=== PATIENT | female | born 1985 | race Caucasian/White ===

== ENCOUNTER 2016-12-10 06:04 | Inpatient (IN) | payer OTHER ==
[2016-12-10] MEDS: LACTATED RINGERS 1,000 ML IV SCH ×2 (07:40→17:30)
[2016-12-10] MEDS ORDERED: ceFAZolin/DEXTROSE,ISO 2 GM/50 ML PIGGYBACK IV PRN (08:16)
[2016-12-10] MEDS ORDERED: HOME MEDICATION LIST NEEDED 1 EA EACH MC ONE (08:16)
[2016-12-10] MEDS ORDERED: LACTATED RINGERS 1,000 ML IV ONE (08:26)
[2016-12-10] MEDS ORDERED: NORMAL SALINE 100 ML IV ONE (08:27)
[2016-12-10] MEDS ORDERED: ceFAZolin 1 GM/10 ML VIAL ONE (08:27)
--- NOTE | 2016-12-10 08:34 | PROGRESS NOTE:Antepartum ---
Assessment and Plan - Date of Encounter Date of Encounter: 12/10/16 (1) Non-reassuring electronic monitoring tracing Status: Acute Current Visit: Yes (2) with 38 completed weeks gestation Status: Acute Current Visit: Yes (3) Encounter for care in third trimester of first Status: Acute Current Visit: Yes (4) Single live Status: Chronic Current Visit: Yes (5) Delivered by section Status: Chronic Current Visit: Yes - Time Spent With Patient Total time spent with greater than 50% in coordination of care (as documented) at patient's floor/unit and/or counseling patient: Estimated anticipated discharge: 12/13/16 DESIGN TECH: Antepartum PN Subj - Subjective Interval history: History and Physical Patient is a 31 yo G1 at 38+3 weeks EGA who presents to L&D wtih decreased movement since 0300 hours. NST in L&D showed minimal variability. VAS resulted in 2 decelerations. She continues to have minimal variability and periodic decelerations including late decelerations. O: VS noted, see flowsheet Gen: NAD, A&O abd: soft, ND, NT, gravid SVE cx: ext: no c/c/e CAt II FHT TAUS at bedside: No breathing movements. +gross movements. ALICIA 19.4. Cephalic presentation. A/P: 31 yo G1 at 38+3 weeks EGA with non-reassuring heart tracing. Decelerations with VAS. Remote from delivery, will not tolerate labor. REcommend we proceed with LTCS, which patient and FOB agree to. We discussed risks, alternatives, and benefits of LTCS. All questions answered, desires to proceed with LTCS. Patient reports: appetite normal, voiding normally, pain well controlled, ambulating normally Antepartum ROS: new complaints, no movement normal DESIGN TECH: Antepartum PN Obj Exam - Latest Vital Signs and I&O Latest Vital Signs/I&O: Vital Signs Temp 36.4 C L 12/10/16 06:15 Pulse 96 H 12/10/16 06:15 Resp 18 12/10/16 06:15 BP 109/80 12/10/16 06:15 Pulse Ox 94 12/10/16 06:15 Intake & Output 12/09/16 12/10/16 12/10/16 17:59 05:59 17:59 Weight 59.874 kg - Exam Heart Monitor comment: NRFHT. Minimal to moderate variability. Decelerations with VAS. Lungs: Bilateral: normal Heart Rhythm: Present: regular Extremities: Absent: tenderness Abdomen: Present: soft Bowel sounds: present Fundal height (cm): 36 Cervical Dilatation Degree: 1 Cervical Effacement Percentage: 30 Additional Comments: -3 station
[2016-12-10 08:35] LABS: BASOPHILS 0.4 % (0.0-2.0); EOSINOPHILS 1.3 % (0.0-6.0); EOSINOPHILS# 0.1 X 10^3uL (0.0-0.4); HEMATOCRIT 42.1 % (36.0-48.0); HEMOGLOBIN 14.1 g/dL (12.0-16.0); LYMPHOCYTES 21.4 % (20.0-40.0); MEAN CELL VOLUME 89.6 fL (80.0-100.0); MEAN CORPUS. HGB CONCENTRATION 33.4 g/dL (32.0-36.0); MEAN PLATELET VOLUME 7.8 fL (7.4-10.4); MONOCYTES 4.9 % (2.0-10.0); MONOCYTES# 0.5 X 10^3uL (0.2-1.0); NEUTROPHILS# 6.8 X 10^3uL (2.6-6.7); PLATELET COUNT 291 X 10^3uL (130-440); RED CELL DISTRIBUTION WIDTH 12.4 % (11.5-14.5); WHITE BLOOD COUNT 9.4 X 10^3uL (3.9-10.7)
[2016-12-10] MEDS ORDERED: FENTANYL 100 MCG/2 ML VIAL ONE (08:53)
[2016-12-10] MEDS ORDERED: MORPHINE SULFATE/PF 10 MG/10 ML VIAL ONE (08:54)
[2016-12-10 08:57] LABS: ABO GROUP TYPE B; RH TYPE POSITIVE
[2016-12-10] MEDS ORDERED: NORMAL SALINE 1,000 ML IV SCH (09:00)
[2016-12-10 09:05] LABS: ANTIBODY SCREEN NEGATIVE
[2016-12-10] MEDS ORDERED: LIDOCAINE HCL 1% 20 ML VIAL ONE (09:07)
[2016-12-10] MEDS ORDERED: PHENYLEPHRINE HCL 10,000 MCG/ML VIAL ONE (09:18)
[2016-12-10] MEDS ORDERED: DEXAMETHASONE 4 MG/ML VIAL ONE (09:24)
[2016-12-10] MEDS ORDERED: METOCLOPRAMIDE HCL 10 MG/2 ML VIAL ONE (09:24)
[2016-12-10] MEDS ORDERED: ONDANSETRON HCL 4 MG/2 ML VIAL ONE (09:24)
[2016-12-10] MEDS ORDERED: FAMOTIDINE IN SALINE, ISO-OSM 20 MG/50 ML PIGGYBACK IV ONE (09:27)
[2016-12-10] MEDS ORDERED: SCOPOLAMINE 1.5 MG PATCH ONE (09:27)
[2016-12-10] MEDS ORDERED: OXYTOCIN 10 UNITS/ML VIAL ONE (09:32)
[2016-12-10] MEDS ORDERED: LACTATED RINGERS 1,000 ML IV SCH ×2 (10:00→11:00)
[2016-12-10] MEDS ORDERED: LANOLIN CREAM 1 APP/7 GM TUBE TOPICAL PRN (10:00)
[2016-12-10] MEDS ORDERED: MAGNESIUM HYDROXIDE 30 ML UDC PO PRN (10:00)
--- NOTE | 2016-12-10 10:00 | OPERATIVE NOTE: C-Section ---
- Operative Report Date of procedure: 12/10/16 Pre-Op Diagnosis: non-reassuring heart tracing Post-op diagnosis: same Procedure: Low transverse section Anesthesia Type: Spinal Estimated Blood Loss: 600 Pathology: sent (cord blood, cord gases) Sponge and instrument counts: correct X-ray taken: No Images viewed by surgeon: No Images viewed by radiologist: No Estimated Gestational Age (weeks): 38 Delivery Presentation: vertex Heart Monitor: category II Heart Monitor comment: NRFHT, late decels, minimal to moderate variability Intrapartum Events: none, recurrent late decelerations, recurrant variable decelerations Amniotic Fluid: meconium Cord Vessel Description: Nuchal Cord Nuchal Cord # of Loops: 1 Cord clamped: Yes Cord blood obtained: Yes at 1 minute: 4 at 5 minutes: 5 at 10 minutes: 5 Gender: Female Delivery Complications: Present: none Narrative: see dictated operative report. Condition: stable Disposition: PACU
[2016-12-10] MEDS ORDERED: DIPHENHYDRAMINE 50 MG/ML VIAL IV PRN ×2 (10:08→10:26)
[2016-12-10] MEDS ORDERED: NALOXONE HCL 0.4 MG/ML VIAL IV PRN ×6 (10:08→10:26)
[2016-12-10] MEDS ORDERED: NALBUPHINE HCL 10 MG/ML AMP IV PRN ×2 (10:08→10:26)
[2016-12-10] MEDS ORDERED: DIPHENHYDRAMINE 25 MG CAPSULE PO PRN ×2 (10:08→10:26)
[2016-12-10] MEDS: IBUPROFEN 600 MG TABLET PO PRN (14:00)
[2016-12-10] MEDS: DOCUSATE SODIUM 100 MG CAPSULE PO SCH (20:53)
[2016-12-11] MEDS: IBUPROFEN 600 MG TABLET PO PRN ×3 (02:41→17:31)
[2016-12-11 07:29] LABS: BASOPHILS 0.2 % (0.0-2.0); EOSINOPHILS 0.5 % (0.0-6.0); EOSINOPHILS# 0.1 X 10^3uL (0.0-0.4); HEMATOCRIT 36.2 % (36.0-48.0); HEMOGLOBIN 12.1 g/dL (12.0-16.0); LYMPHOCYTES 22.9 % (20.0-40.0); LYMPHOCYTES# 2.9 X 10^3uL (0.8-3.8); MEAN CELL VOLUME 88.7 fL (80.0-100.0); MEAN CORPUS. HGB CONCENTRATION 33.5 g/dL (32.0-36.0); MEAN CORPUSCULAR HEMOGLOBIN 29.7 pg (29.0-35.0); MEAN PLATELET VOLUME 7.6 fL (7.4-10.4); MONOCYTES 4.7 % (2.0-10.0); MONOCYTES# 0.6 X 10^3uL (0.2-1.0); NEUTROPHILS 71.7 % (54.0-75.0); RED BLOOD COUNT 4.09 X 10^6uL (4.20-6.10); RED CELL DISTRIBUTION WIDTH 12.7 % (11.5-14.5); WHITE BLOOD COUNT 12.6 X 10^3uL (3.9-10.7)
--- NOTE | 2016-12-11 08:14 | PROGRESS NOTE:C-section ---
Assessment and Plan - Date of Encounter Date of Encounter: 12/11/16 (1) Non-reassuring electronic monitoring tracing Status: Acute Current Visit: Yes (2) with 38 completed weeks gestation Status: Acute Current Visit: Yes (3) Encounter for care in third trimester of first Status: Acute Current Visit: Yes (4) Single live Status: Chronic Current Visit: Yes (5) Delivered by section Problem details: POD#1 s/p LTCS for NRFHT. Doing well overall. No fever. Good pain control. Status: Chronic Current Visit: Yes - Time Spent With Patient Total time spent with greater than 50% in coordination of care (as documented) at patient's floor/unit and/or counseling patient: Estimated anticipated discharge: 12/13/16 WEB ENGINEER: C-Sec PN Subjective Interval History: History and Physical Patient is a 31 yo G1 at 38+3 weeks EGA who presents to L&D wtih decreased movement since 0300 hours. NST in L&D showed minimal variability. VAS resulted in 2 decelerations. She continues to have minimal variability and periodic decelerations including late decelerations. O: VS noted, see flowsheet Gen: NAD, A&O abd: soft, ND, NT, gravid SVE cx: 07/11/3 ext: no c/c/e CAt II FHT TAUS at bedside: No breathing movements. +gross movements. ALICIA 19.4. Cephalic presentation. A/P: 31 yo G1 at 38+3 weeks EGA with non-reassuring heart tracing. Decelerations with VAS. Remote from delivery, will not tolerate labor. REcommend we proceed with LTCS, which patient and FOB agree to. We discussed risks, alternatives, and benefits of LTCS. All questions answered, desires to proceed with LTCS. Post-op Day: 1 Patient reports: appetite normal, voiding normally, pain well controlled, ambulating normally, flatus : doing well, nursing well WEB ENGINEER: C-Sec PN Obj Exam - Latest Vital Signs and I&O Latest Vital Signs/I&O: Vital Signs Temp 36.4 C L 12/11/16 02:00 Pulse 88 12/11/16 02:00 Resp 19 12/11/16 02:00 BP 93/54 12/11/16 02:00 Pulse Ox 97 12/11/16 02:00 Intake & Output 12/10/16 12/11/16 12/11/16 17:59 05:59 17:59 Intake Total 1999 Output Total 2800 1050 Balance -800 -1050 Weight 59.874 kg Intake: IV 1999 Left Hand 1999 Oral 0 Output: Urine 2100 1050 Uretheral ([place]raham) 500 Other 700 Other: Urine Appearance Clear Clear Urine Color Pale Pale Yellow Yellow Uretheral ([place]) Pale Yellow Stool Characteristics Soft Formed Voiding Method Indwelling Catheter Indwelling Catheter - Exam Heart Rhythm: Present: regular Extremities: Present: normal, edema Abdomen: Present: normal appearance, soft Bowel sounds: present Incision: Present: well approximated, open to air Uterus: Present: normal, firm, non tender - Lab Labs: Laboratory Last Values WBC 12.6 X 10^3uL (3.9-10.7) H 12/11/16 07:10 RBC 4.09 X 10^6uL (4.20-6.10) L 12/11/16 07:10 Hgb 12.1 g/dL (12.0-16.0) 12/11/16 07:10 Hct 36.2 % (36.0-48.0) 12/11/16 07:10 MCV 88.7 fL (80.0-100.0) 12/11/16 07:10 MCH 29.7 pg (29.0-35.0) 12/11/16 07:10 MCHC 33.5 g/dL (32.0-36.0) 12/11/16 07:10 RDW 12.7 % (11.5-14.5) 12/11/16 07:10 Plt Count 230 X 10^3uL (130-440) 12/11/16 07:10 MPV 7.6 fL (7.4-10.4) 12/11/16 07:10 Neutrophils % 71.7 % (54.0-75.0) 12/11/16 07:10 Lymphocytes % 22.9 % (20.0-40.0) 12/11/16 07:10 Eosinophils % 0.5 % (0.0-6.0) 12/11/16 07:10 Basophils % 0.2 % (0.0-2.0) 12/11/16 07:10 Neutrophils # 9.0 X 10^3uL (2.6-6.7) H 12/11/16 07:10 Lymphocytes # 2.9 X 10^3uL (0.8-3.8) 12/11/16 07:10 Monocytes 4.7 % (2.0-10.0) 12/11/16 07:10 Monocytes # 0.6 X 10^3uL (0.2-1.0) 12/11/16 07:10 Eosinophils # 0.1 X 10^3uL (0.0-0.4) 12/11/16 07:10 Basophils # 0.0 X 10^3uL (0.0-0.1) 12/11/16 07:10 ABO Group Type b 12/10/16 08:16 Rh Factor Positive 12/10/16 08:16 Antibody Screen Negative 12/10/16 08:16
[2016-12-11] MEDS: DOCUSATE SODIUM 100 MG CAPSULE PO SCH ×2 (09:12→22:18)
[2016-12-11] MEDS ORDERED: WITCH HAZEL 1 EACH MED..PAD TOPICAL ONE (20:12)
[2016-12-11] MEDS: SIMETHICONE CHEW 80 MG TABLET PO PRN (22:18)
[2016-12-12 03:59] VITALS: RESP 16
--- NOTE | 2016-12-12 08:15 | DC SUMMARY: Obstetrical/GYN ---
Discharge Summary: Surg/OB Provider: Date of Admission: 12/10/16 Admitting Provider: MIGUE PEDERSON MD Attending Provider: MIGUE PEDERSON MD Discharging Provider: Edward Marsh Primary Care Provider: Discharge Date: 12/12/16 - Diagnosis (1) Non-reassuring electronic monitoring tracing Status: Acute (2) with 38 completed weeks gestation Status: Acute (3) Encounter for care in third trimester of first Status: Acute (4) Single live Status: Chronic (5) Delivered by section Status: Chronic Hospital Course: Ms. PHOENIX is a 31 year old female who underwent urgent LTCS for NRFHT. She did well and is doing well currently with good pain control, no fever, ambulating, voiding, tolerating PO. Desires discharge home. f/u [address] Pederson. Time spent discussing smoking cessation with patient: more than 10 minutes Discharge - Patient/Caregiver Discharge Instructions Activity Level: As tolerated, pelvic rest for 6 weeks, avoid all but light exercise. Follow up with Dr. Pederson in 6 weeks. Diet: regular Additional Instructions: follow up in 6 weeks Follow up: MIGUE PEDERSON MD [ACTIVE (Staff Physician)] - 7 Days Overall discharge status: patient is progressing back to baseline Print Language: NICARAG[place] Home Medications: Ibuprofen 800 mg PO TID #30 tab oxyCODONE HCL/ACETAMINOPHEN [Percocet 5-325 mg Tablet] 2 each PO Q6H PRN #24 tablet PRN Reason: Pain, Moderate Polyethylene Glycol 3350 [Miralax*] 1 packet PO BID #15 packet Disposition: HOME, SELF-CARE Obstetrical/HTML DEVELOPER Discharge Exam - Latest Vital Signs and I&O Latest Vital Signs/I&O: Vital Signs Temp 36.8 C 12/12/16 03:58 Pulse 88 12/12/16 03:58 Resp 16 12/12/16 03:58 BP 106/62 12/12/16 03:58 Pulse Ox 94 12/12/16 03:58 Intake & Output 12/11/16 12/12/16 12/12/16 17:59 05:59 17:59 Intake Total 2700 Output Total 4200 1000 Balance -1500 -1000 Intake: Oral 2700 Output: Urine 3500 1000 Other 700 Other: Urine Appearance Clear Clear Urine Color [place] Yellow Stool Characteristics Soft Formed Voiding Method Toilet Toilet # Voids 1 - Exam Heart Rhythm: Present: regular Extremities: Present: normal, edema Abdomen: Present: normal appearance, soft Bowel sounds: present Incision: Present: well approximated, open to air Uterus: Present: normal, firm, non tender Discharge Summary Data - Medication History Medication History: Home Medications Diphenhydramine [Benadryl*] 25 mg PO HS PRN 12/11/16 Loratadine [Claritin] 10 mg PO DAILY 12/11/16 Omeprazole [Prilosec] 20 mg PO BEFORE BRKFST/DINN 12/11/16 Vit/Fe Fumarate/FA [ Rx 1] 1 tab PO DAILY 12/11/16 Ibuprofen 800 mg PO TID #30 tab 12/12/16 Polyethylene Glycol 3350 [Miralax*] 1 packet PO BID #15 packet 12/12/16 oxyCODONE HCL/ACETAMINOPHEN [Percocet 5-325 mg Tablet] 2 each PO Q6H PRN #24 tablet 12/12/16 Inpatient Medications 12/10/16 08:16 ceFAZolin/DEXTROSE,ISO [Ancef 2 gm] 2 gm IV .SCIENTIFIC TECHNICAL WRITER TO OR PRN 12/10/16 09:00 Lactated Ringers [Lr 1000 ml Bag] 1,000 ml IV CONT Normal Saline [Sodium Chloride 0.9% 1000 ml] 1,000 ml IV CONT 12/10/16 10:00 Ibuprofen [Motrin] 600 mg PO Q6H PRN Lactated Ringers [Lr 1000 ml Bag] 1,000 ml IV CONT Lanolin Cream [Lansinoh] 1 arvin TOPICAL PRN PRN Magnesium Hydroxide [Milk of Magnesia] 30 ml PO PRN PRN Simethicone Chew [Mylicon] 80 mg PO Q6H PRN oxyCODONE HCL IR [Oxy Ir] See Dose Instructions PO Q4H PRN 12/10/16 10:26 proMETHazine HCL [Phenergan Inj] 12.5 mg IV ONCE PRN 12/10/16 11:00 Lactated Ringers [Lr 1000 ml Bag] 1,000 ml IV CONT 12/10/16 21:00 Docusate Sodium [Colace] 100 mg PO BID Procedures and tests throughout hospitalization: Completed Lab Orders 12/10/16 08:16 ABO GROUP [HEM] Stat ANTIBODY SCREEN [HEM] Stat CBC AUTO DIF, MDIF/RMOR IF IND [HEM] Stat RH TYPE [HEM] Stat 12/11/16 07:10 CBC AUTO DIF, MDIF/RMOR IF IND [HEM] Urgent Pending Orders 12/10/16 08:16 Admit: Inpatient Routine VTE Prophylaxis Scoring/ Ordering Routine NLC Maternal Vital Signs PER PROTOCOL Resuscitation Status Routine ceFAZolin/DEXTROSE,ISO [Ancef 2 gm] 2 gm IV .SCIENTIFIC TECHNICAL WRITER TO OR PRN 12/10/16 09:00 Lactated Ringers [Lr 1000 ml Bag] 1,000 ml IV CONT Normal Saline [Sodium Chloride 0.9% 1000 ml] 1,000 ml IV CONT 12/10/16 10:00 VTE Prophylaxis Scoring/ Ordering Routine Intake and Output Notify Physician Post Assessment PER PROTOCOL Ibuprofen [Motrin] 600 mg PO Q6H PRN Lactated Ringers [Lr 1000 ml Bag] 1,000 ml IV CONT Lanolin Cream [Lansinoh] 1 arvin TOPICAL PRN PRN Magnesium Hydroxide [Milk of Magnesia] 30 ml PO PRN PRN Simethicone Chew [Mylicon] 80 mg PO Q6H PRN oxyCODONE HCL IR [Oxy Ir] See Dose Instructions PO Q4H PRN 12/10/16 10:26 Notify Anesthesia . proMETHazine HCL [Phenergan Inj] 12.5 mg IV ONCE PRN 12/10/16 11:00 Lactated Ringers [Lr 1000 ml Bag] 1,000 ml IV CONT 12/10/16 21:00 Docusate Sodium [Colace] 100 mg PO BID 12/10/16 Breakfast Nothing By Mouth [DIET] 12/10/16 Lunch Regular [DIET] 12/12/16 08:01 Discharge ONCE 12/12/16 Dinner Special Meal (NLC) - Impressions POD#2 s/p LTCS, doing well. D/c home or to boarding care if is not discharged today.
[2016-12-12] MEDS: DOCUSATE SODIUM 100 MG CAPSULE PO SCH (08:49)
[2016-12-12] MEDS: IBUPROFEN 600 MG TABLET PO PRN ×2 (08:49→15:07)
[2016-12-12 12:40] VITALS: TEMP 98.1; O2SAT 96
[2016-12-12 15:45] VITALS: BP 108/69; PULSE 96
[2016-12-12] MEDS: SIMETHICONE CHEW 80 MG TABLET PO PRN (17:25)
== END 2016-12-12 18:25 | disposition home or self-care (01) | DRG 766 ==
LOC: NLCPRO 06:04 → NLC 07:25
PROVIDERS: ADMIT Obstetrics & Gynecology; ATTEND Obstetrics & Gynecology
PROC: 10D00Z1 Extraction of Products of Conception, Low, Open Approach (ICD-10-PCS; principal; 2016-12-10)
DX: O76 Abnormality in fetal heart rate and rhythm complicating labor and delivery (principal); Z3A.38 38 weeks gestation of pregnancy; Z37.0 Single live birth
CPT/HCPCS: 36415; 85025; 86850; 86900; 86901; C1781; J0690; J2370; J2405; J2590; J2765; J3010; J7120